=== PATIENT | female | born 1940 | race Hispanic/Latino ===

== ENCOUNTER 2018-11-28 23:14 | Emergency (ER) | payer OTHER, MEDICARE ==
[2018-11-29] MEDS ORDERED: LABETALOL HCL 5 MG/ML 20ML VIAL IV ONE (00:41)
[2018-11-29] MEDS ORDERED: TETANUS/DIPHTHERIA TOXOID [ADULT] 0.5 ML VIAL IM ONE (00:42)
[2018-11-29 01:21] LABS: BASOPHILS % (AUTO) 1.1 % (0.0-5.0); CREATININE 0.8 mg/dL (0.5-1.5); HEMATOCRIT 31.4 % (36-48); MEAN CORPUSCULAR HEMOGLOBIN 23.3 pg (27.0-33.0); MEAN CORPUSCULAR HGB CONC 31.7 g/dL (32.0-36.0); MEAN CORPUSCULAR VOLUME 73.7 fL (79-99); MONOCYTES % (AUTO) 12.8 % (3.0-13.0); NEUTROPHILS % (AUTO) 58.1 % (40.0-77.0); NUCLEATED RED BLOOD CELLS 0.1 % (0.0-0.19); PLATELET COUNT (AUTO) 159 K/uL (130-400); POTASSIUM 3.8 mmol/L (3.5-5.1); RED BLOOD CELL COUNT(AUTO) 4.26 MIL/uL (4.00-5.50); RED CELL DISTRIBUTION WIDTH 25.5 % (11.0-15.5); WHITE BLOOD COUNT (AUTO) 4.8 K/uL (4.8-10.8)
[2018-11-29 01:22] LABS: INR 1.18 (0.85-1.15); PARTIAL THROMBOPLASTIN TIME 27.6 SEC (26.3-35.5); PROTHROMBIN TIME 12.3 SEC (9.6-11.6)
[2018-11-29 01:26] LABS: ALBUMIN 1.9 g/dL (3.5-5.0); BILIRUBIN,TOTAL 0.7 mg/dL (0.2-1.0); TOTAL PROTEIN, SERUM 6.6 g/dL (6.0-8.3)
[2018-11-29] MEDS ORDERED: OCTYL 2-CYANOACRYLATE 1 EACH TP ONE (02:53)
== END 2018-11-29 05:26 | disposition home or self-care (01) ==
LOC: EDH 23:14
DX: S01.112A Laceration without foreign body of left eyelid and periocular area, initial encounter (principal); I10 Essential (primary) hypertension; R79.1 Abnormal coagulation profile; Z95.0 Presence of cardiac pacemaker; Z95.1 Presence of aortocoronary bypass graft; W18.39XA Other fall on same level, initial encounter; Y93.89 Activity, other specified; Y92.89 Other specified places as the place of occurrence of the external cause; Y99.8 Other external cause status
CPT/HCPCS: 12052; 36415; 70450; 80053; 82550; 84484; 85025; 85610; 85730; 90471; 90714; 93005; 96374; 99285; J3490